=== PATIENT | female | born 1935 | race African-American/Black ===

== ENCOUNTER → 2019-02-09 | Day surgery (SDC) | payer OTHER ==
[~2019-02-09] MED LIST: AMLO10TA8 PO; GLIP10TA13 PO; HYDR50TA6 PO; HYDROmorphone 2 MG/ML VIAL IV PRN; IV RINGERS,LACTATED 1000ML 1,000 ML IV SCH; LIDOCAINE 1% PF 2 ML VIAL. ID PRN; LIDOCAINE 2% PF 5 ML VIAL. ONE; LOSA100T14 PO; METF10007 PO; MORPHINE SULFATE 2 MG/ML VIAL. IV PRN; ONDANSETRON PF 4 MG/2 ML VIAL. IV PRN; PROCHLORPERAZINE 10 MG/2 ML VIAL. IV PRN; PROPOFOL 20 ML IV ONE; PROPOFOL 40 ML IV ONE; fentaNYL PF VIAL 100 MCG/2 ML VIAL IV PRN
--- NOTE | 2019-02-09 10:40 | PREOP HP ---
DATE OF SERVICE: 02/09/2019 REQUESTING PHYSICIAN: Dr. Cuco Doyle. PRIMARY CARE PHYSICIAN: Dr. Cuco Doyle. REASON FOR PROCEDURE: History of Gomez's and colorectal cancer screening. HISTORY OF PRESENT ILLNESS: This is an 83-year-old female with a history of Gomez esophagus. She is to undergo an upper endoscopy and colonoscopy for further evaluation. PAST MEDICAL HISTORY: Gomez's esophagus, reflux, hiatal hernia and anal fissure. FAMILY MEDICAL HISTORY: Significant for polyps and colon cancer. SOCIAL HISTORY: She is a nonsmoker. She is retired. She denies alcohol or IV drug abuse. MEDICATIONS: The MAR was reviewed. REVIEW OF SYSTEMS: A 13-point review of systems was done. It is positive as per HPI and otherwise negative. PHYSICAL EXAMINATION: GENERAL: She is a well-developed, well-nourished -[place] female, in no apparent distress. HEENT: Oropharynx is clear. CARDIOVASCULAR: S1, S2. LUNGS: Clear. ABDOMEN: Normoactive bowel sounds. Soft, nontender and nondistended. EXTREMITIES: No edema. NEUROLOGIC: Awake, alert and oriented x 3. ASSESSMENT AND PLAN: 1. Gomez esophagus. She is to undergo upper endoscopy for further evaluation. The risks and benefits including bleeding, perforation, non-diagnosis and sedation were explained and she has agreed to proceed. 2. Colorectal cancer screening. She is to undergo colonoscopy for further evaluation. The risks and benefits including bleeding, non-diagnosis and sedation were explained and she has agreed to proceed. Thank you for allowing me to participate in the care of this patient. ROXIE MCKINNEY MD DR: KSENIA/nts JOB#: [id number] / [id number]
[2019-02-09 10:45] VITALS: BP 156/78
--- NOTE | 2019-02-10 16:07 | PATHOLOGY ---
[facility] Accession Number: [id number] . 01 Material submitted: . PART A: SMALL BOWEL BIOPSY PART B: GASTRIC ANTRUM BIOPSY PART C: DISTAL ESOPHAGUS BIOPSY PART D: CECAL POLYP BIOPSY PART E: ASCENDING COLON POLYP BIOPSY PART F: DESCENDING COLON POLYPECTOMY . 01 Clinical history: . Gomez's, CRC . 02 Diagnosis: A. Small bowel biopsy: - No significant pathologic abnormalities. . B. Gastric biopsy, antrum: - Very mild chronic gastritis. . C. Esophageal biopsies, distal esophagus: - Segments of hyperplastic squamous esophageal mucosa and focally contiguous columnar lined mucosa showing chronic inflammation and focal intestinal metaplasia with goblet cells consistent with Gomez's change. . D. Colon biopsies, cecal polyp: - Tubular adenoma. . E. Colon biopsies, ascending colon polyp: - Tubular adenoma. . F. Descending colon polypectomy: - Mixed hyperplastic and adenomatous polyp, with surface erosion and acute and chronic inflammation with increased eosinophils. LBQ/02/10/2019 . 02 Comment: Sections of the small bowel biopsy reveal segments of duodenal and small intestine mucosa. Where best oriented, the mucosal villi show no sprue-like changes or significant inflammatory changes. Sections of the gastric biopsy reveal segments of gastric antral-body transition mucosa showing congestion and very mild chronic inflammation. A properly controlled immunoperoxidase stain for Helicobacter is negative for Helicobacter organisms. Sections of the distal esophageal biopsy reveal segments of mildly hyperplastic squamous esophageal mucosa with focal contiguous columnar lined mucosa showing mild to moderate chronic inflammation and focal intestinal metaplasia with goblet cells consistent with Gomez's change. There is no dysplasia or evidence of malignancy. Sections of the cecal polyp and ascending colon polyp biopsies appear similar and reveal tubular adenomas showing no high grade dysplasia or evidence of malignancy. Sections of the descending colon polypectomy reveal a mixed hyperplastic and adenomatous polyp showing surface erosion with acute and chronic inflammation and increased eosinophils. There is no high grade dysplasia or evidence of malignancy. (JPM/db; 02/10/2019) . Special stain performed: Immunoperoxidase stain for Helicobacter on B1 . 02 Electronically signed: . Emre Sheriff MD, Pathologist NPI- [id number] . 01 Gross description: . A. Received in formalin labeled "Alvarez, Gila, small bowel BX," are 3 segments of freed soft tissue measuring 1.3 x 0.6 x 0.2 cm in aggregate dimensions and ranging from 0.4 to 0.8 cm in maximum dimension. The specimen is submitted entirely in cassette A1. . B. Received in formalin labeled "Alvarez, Gila, gastric antrum BX," are 2 segments of freed soft tissue measuring 0.7 x 0.3 x 0.2 cm in aggregate dimensions and ranging from 0.3 to 0.4 cm in maximum dimension. The specimen is submitted entirely in cassette B1. . C. Received in formalin labeled "Alvarez, Gila, distal esophagus BX," are 4 segments of freed soft tissue measuring 0.9 x 0.8 x 0.3 cm in aggregate dimensions and ranging from 0.2 to 0.5 cm in maximum dimension. The specimen is submitted entirely in cassette C1. . D. Received in formalin labeled "Alvarez, Gila, cecal polyp BX," are 4 segments of freed soft tissue measuring 1.3 x 0.9 x 0.3 cm in aggregate dimensions and ranging from 0.3 to 0.6 cm in maximum dimension. The specimen is submitted entirely in cassette D1. . E. Received in formalin labeled "Alvarez, Gila, ascending colon polyp BX," are 3 segments of freed soft tissue measuring 0.9 x 0.9 x 0.2 cm in aggregate dimensions and ranging from 0.3 to 0.4 cm in maximum dimension. The specimen is submitted entirely in cassette E1. . F. Received in formalin labeled "Alvarez, Gila, descending colon polypectomy," is a 0.8 x 0.5 x 0.4 cm polypoid piece of freed soft tissue. The margin is inked and the specimen is sectioned perpendicular to the margin and entirely submitted in cassette F1. Additionally received in the same container are 2 segments of freed soft tissue measuring 1.0 x 0.3 x 0.2 cm in aggregate dimensions and ranging from 0.4 to 0.6 cm in maximum dimension. The specimen is submitted entirely in cassette F2. (TSD; 02/09/2019) TOB/TOB . 02 Pathologist provided ICD-10: K29.50, K20.9, K22.70, D12.0, D12.2, K63.5, D12.4 . 02 CPT . 458069, 630900, 905744, [id number], 269254, [id number], [id number] Specimen Comment: A courtesy copy of this report has been sent to Specimen Comment: [phone], , . Specimen Comment: Report sent to ,DR OLIVER / DR KENNY Specimen Comment: A duplicate report has been generated due to demographic updates. Performed at: 01 [facility] [address] [id number] MD Gulshan Marshall MD Phone: [phone] Performed at: [facility] [address] [place], [place] [id number] MD Emre Sheriff MD Phone: [phone]
== END | disposition home or self-care (01) ==
LOC: ENDOS 08:00
PROVIDERS: ATTEND Internal Medicine Gastroenterology
DX: Z12.11 Encounter for screening for malignant neoplasm of colon (principal); D12.1 Benign neoplasm of appendix; D12.0 Benign neoplasm of cecum; D12.4 Benign neoplasm of descending colon; K57.30 Diverticulosis of large intestine without perforation or abscess without bleeding; K64.0 First degree hemorrhoids; K22.2 Esophageal obstruction; K44.9 Diaphragmatic hernia without obstruction or gangrene; K22.70 Barrett's esophagus without dysplasia; K29.50 Unspecified chronic gastritis without bleeding; K21.0 Gastro-esophageal reflux disease with esophagitis; K31.89 Other diseases of stomach and duodenum; I10 Essential (primary) hypertension; E11.9 Type 2 diabetes mellitus without complications; Z88.0 Allergy status to penicillin; Z80.0 Family history of malignant neoplasm of digestive organs; Z83.71 Family history of colonic polyps; Z79.899 Other long term (current) drug therapy; Z79.84 Long term (current) use of oral hypoglycemic drugs; Z87.19 Personal history of other diseases of the digestive system; Z90.49 Acquired absence of other specified parts of digestive tract; Z90.710 Acquired absence of both cervix and uterus; Z98.890 Other specified postprocedural states; Z87.891 Personal history of nicotine dependence
CPT/HCPCS: 43239; 43249; 45380; 45385; 88305; 88342; J2001; J2704